=== PATIENT | male | born 1970 | race Caucasian/White ===

== ENCOUNTER 2016-09-14 23:29 | Emergency (ER) | payer BC ==
[2016-09-15 04:41] LABS: RED BLOOD COUNT 4.98 M/UL (4.20-5.50)
[2016-09-15 04:55] LABS: BUN/CREATININE RATIO 21 (0-10)
== END 2016-09-15 05:50 | disposition home or self-care (01) ==
LOC: ER1 23:29
PROVIDERS: Physician Assistant
DX: R10.814 Left lower quadrant abdominal tenderness (principal); R11.0 Nausea; F17.210 Nicotine dependence, cigarettes, uncomplicated; Z88.5 Allergy status to narcotic agent
CPT/HCPCS: 36415; 80053; 81001; 83690; 85025; 87086; 96361; 96374; 99284; J2405